=== PATIENT | male | born 1960 | race Caucasian/White ===

== ENCOUNTER 2018-07-26 11:18 | Emergency (ER) | payer MEDICARE ==
[2018-07-26] MEDS ORDERED: Proparacaine 0.5% Opth 15 ML BOT ONE (11:48)
[2018-07-26] MEDS ORDERED: Fluorescein Opthalmic Strip ONE (11:49)
== END 2018-07-26 12:15 | disposition home or self-care (01) ==
LOC: SCSER 11:18
DX: H00.013 Hordeolum externum right eye, unspecified eyelid (principal); H10.9 Unspecified conjunctivitis; F32.9 Major depressive disorder, single episode, unspecified; I25.10 Atherosclerotic heart disease of native coronary artery without angina pectoris; I10 Essential (primary) hypertension; F17.210 Nicotine dependence, cigarettes, uncomplicated; E78.5 Hyperlipidemia, unspecified
CPT/HCPCS: 99283

== ENCOUNTER 2019-04-14 13:50 | Emergency (ER) | payer MEDICARE ==
[2019-04-14] MEDS ORDERED: Methocarbamol 500 MG TAB ONE (14:31)
[2019-04-14] MEDS ORDERED: Ketorolac Tromethamine 60 MG/2 ML VIAL ONE (14:48)
== END 2019-04-14 16:00 | disposition home or self-care (01) ==
LOC: SCSER 13:50
DX: M62.830 Muscle spasm of back (principal); I25.10 Atherosclerotic heart disease of native coronary artery without angina pectoris; E78.5 Hyperlipidemia, unspecified; I10 Essential (primary) hypertension; F32.9 Major depressive disorder, single episode, unspecified; F17.210 Nicotine dependence, cigarettes, uncomplicated; Z79.899 Other long term (current) drug therapy
CPT/HCPCS: 96372; 99283; J1885

== ENCOUNTER 2024-10-13 06:00 | Day surgery (SDC) | payer OTHER ==
[2024-10-10 09:55] VITALS: BMI 27.1
[2024-10-13] MEDS ORDERED: PROPOFOL 20 ML ONE ×2 (08:32→08:44)
[2024-10-13] MEDS ORDERED: Lidocaine 1% PF 5 ML VIAL ONE (08:58)
== END 2024-10-13 09:57 | disposition home or self-care (01) ==
LOC: SDC 06:00
PROVIDERS: ATTEND Internal Medicine Gastroenterology
PROC: 0DBM8ZZ Excision of Descending Colon, Via Natural or Artificial Opening Endoscopic (ICD-10-PCS; principal; 2024-10-13)
PROC: 0DBN8ZZ Excision of Sigmoid Colon, Via Natural or Artificial Opening Endoscopic (ICD-10-PCS; 2024-10-13)
DX: Z12.11 Encounter for screening for malignant neoplasm of colon (principal); D12.4 Benign neoplasm of descending colon; K63.5 Polyp of colon; K64.8 Other hemorrhoids; K57.30 Diverticulosis of large intestine without perforation or abscess without bleeding; I10 Essential (primary) hypertension; E78.5 Hyperlipidemia, unspecified; F17.200 Nicotine dependence, unspecified, uncomplicated; Z86.0100 Personal history of colon polyps, unspecified; Z80.0 Family history of malignant neoplasm of digestive organs; Z95.5 Presence of coronary angioplasty implant and graft; Z95.810 Presence of automatic (implantable) cardiac defibrillator; Z90.89 Acquired absence of other organs; Z79.82 Long term (current) use of aspirin; Z79.899 Other long term (current) drug therapy
CPT/HCPCS: 45385; J2704; 88305